=== PATIENT | male | born 1950 | race African-American/Black ===

== ENCOUNTER 2018-08-01 23:56 | Emergency (ER) | payer OTHER ==
[2018-08-02 00:57] VITALS: BP 147/84; PULSE 63; TEMP 99.1; BMI 21.5
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
--- NOTE | 2018-08-02 01:21 | PDOC ---
Attending Attestation - Resident Resident Name: Luis Gastelum - ED Attending Attestation I have performed the following: I have examined & evaluated the patient, The case was reviewed & discussed with the resident, I agree w/resident's findings & plan - HPI HPI: 08/02/18 01:18 67-year-old male with history of prostate CA status post [facility] last [facility] presents now for evaluation of acute on chronic back pain, stating he needs to "reset his insurance" through [facility]. No fall or recent injury, no bowel or bladder issues, no leg weakness or fevers or chills. He is mostly looking for referral to outpatient specialists. He had an MRI of his LS and lower spine about one or 2 years ago, does not recall the results. - Physicial Exam PE: 08/02/18 01:19 Afebrile, vital signs are normal Very well-appearing, ambulating freely throughout the emergency department No midline spine tenderness to palpation, 5 out of 5 strength in all joints of both lower extremities, neurovascularly intact distally - Medical Decision Making 08/02/18 01:20 67-year-old male with acute on chronic low back pain, only red flag his history of prostate CVA, otherwise no findings on physical exam. [facility], but is looking for referral to other specialists/second opinion. LS spine x-ray Does not require or request pain medication No indication for further emergent workup, will refer to outpatient clinic.
== END 2018-08-02 02:16 | disposition home or self-care (01) ==
LOC: JER 23:56
DX: M54.5 Low back pain (principal); G89.29 Other chronic pain; Z85.46 Personal history of malignant neoplasm of prostate
CPT/HCPCS: 72100-TC-FY; 99281-25

== ENCOUNTER 2018-10-28 06:14 | Emergency (ER) | payer OTHER ==
[2018-10-28 06:46] VITALS: TEMP 98; BMI 21.5
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
[2018-10-28 09:12] VITALS: BP 140/78; PULSE 18
== END 2018-10-28 09:00 | disposition home or self-care (01) ==
LOC: JER 06:14
DX: Z03.89 Encounter for observation for other suspected diseases and conditions ruled out (principal); M19.90 Unspecified osteoarthritis, unspecified site
CPT/HCPCS: 99281-25

== ENCOUNTER → 2018-11-07 | Emergency (ER) | payer OTHER ==
[~2018-11-07] MED LIST: MAG HYDROX/AL HYDROX/SIMETH 30 ML UNIT-DOSE CUP ONE; MAG HYDROX/AL HYDROX/SIMETH 30 ML UNIT-DOSE CUP PO ONE
[2018-11-07 02:52] VITALS: BP 160/83; PULSE 86; TEMP 98.7; BMI 21.5
--- NOTE | 2018-11-07 03:22 | PDOC ---
History of Present Illness - General Chief Complaint: Pain Stated Complaint: ABD PAIN History Source: Patient Exam Limitations: No Limitations - History of Present Illness Initial Comments: 11/07/18 05:02 Patient is a 67 year old male with a significant past medical history of homelessness, and prostate cancer, who presents to the ED with complaints of stomach pain that began x2 weeks ago. Patient reports experiencing intermittent stomach pain with associated symptoms of diarrhea. He reports coming into the ED for mylanta, stating it has worked for his upset stomach in the past. Patient reports taking pepto bismol for stomach pain with no relief. Denies chest pain, Sob. Denies nausea, vomiting. Denies contact with sick individuals, out of state travelling. Denies fevers, chills. Denies any other symptoms. Allergies: None Social history: No smoking. No alcohol. No illicit drugs. Surgical history: None PMD: None ROS shortened version: Constitutional: no fevers or chills. HEENT: no headache or dizziness. No congestion. No visual/hearing disturbances. CVS: no cp or syncope. Resp: no sob. No cough. Abdomen: +Abdominal pain. no nausea or vomiting. Genitourinary: no urinary sx, hematuria. MUSCULOSKELETAL: No joint pain and swelling. No neck or back pain. SKIN: no redness or skin changes, no discharge, no rash. No wounds. Hematologic: no easy bruising/bleeding. NEUROLOGIC: No headache, dizziness, LOC or altered mental status. No weakness, numbness or tingling. All other systems reviewed and negative, or as documented in HPI. Physical exam (general medical): for attending only patients. General: Well appearing, awake and alert, NAD. HEENT: NCAT, PERRL, EOMI, clear conjunctiva, anicteric, moist mucus membranes, clear oropharynx, no oral lesions.. Neck: neck supple, FROM Resp: CTAB, normal and even respirations, no respiratory distress CVS: RRR, no murmurs, 2+ peripheral pulses throughout, no peripheral edema Abdomen: soft, NTND, no peritoneal signs. no maldonado's sign. Back: nontender, normal inspection and ROM MSK: no edema, PEREIRA x4, ROM intact. No clubbing or cyanosis. normal bulk and tone. Extremities: no calf tenderness Neuro: alert, Skin: warm and well perfused, cap refill <2 sec, normal color Past History - Past Medical History Allergies/Adverse Reactions: Allergies Allergy/AdvReac Type Severity Reaction Status Date / Time No Known Allergies Allergy Verified 11/07/18 02:51 Home Medications: Ambulatory Orders NK [No Known Home Medication] 11/07/18 COPD: No - Surgical History Abdominal Surgery: No - Suicide/Smoking/Psychosocial Hx Smoking History: Never smoked Have you smoked in the past 12 months: No Information on smoking cessation initiated: No Hx Alcohol Use: No Drug/Substance Use Hx: No Substance Use Type: None *Physical Exam - Vital Signs Last Vital Signs Temp Pulse Resp BP Pulse Ox 98.7 F 86 18 160/83 98 11/07/18 02:47 11/07/18 02:47 11/07/18 02:47 11/07/18 02:47 11/07/18 02:47 Moderate Sedation - Procedure Monitoring Vital Signs: Procedure Monitoring Vital Signs Temperature 98.7 F 11/07/18 02:47 Pulse Rate 86 11/07/18 02:47 Respiratory Rate 18 11/07/18 02:47 Blood Pressure 160/83 11/07/18 02:47 O2 Sat by Pulse Oximetry (%) 98 11/07/18 02:47 ED Treatment Course - LABORATORY CBC & Chemistry Diagram: 11/07/18 04:19 11/07/18 04:19 Medical Decision Making - Medical Decision Making 11/07/18 03:42 I, Delilah Arias MD, attest that this document has been prepared under my direction and personally reviewed by me in its entirety. I further attest, that it accurately reflects all work, treatment, procedures and medical decision -making performed by me. See HPI for details Vital signs reviewed, wnl. Prior notes reviewed, including admissions, discharges and consultations. laboratory results and imaging reviewed, basic labs and lytes wnl, LFTs and lipase UA_clear ED course: given mylanta/maalox, no abdominal tenderness. well, ambulatory w/o difficulties. no n/v/d. not suspecting cardiac. more likely chronic sx, GERD vs gastritis, as 2 week/ chronic history pt eloped prior to lab results coming back. he did receive his mylanta here. abdomen is soft NTND when initially evaluated and doubt serious or emergent pathology given timeline of sx. 11/07/18 03:44 11/07/18 05:02 *DC/Admit/Observation/Transfer Diagnosis at time of Disposition: Encounter for medical screening examination, Abdominal pain - Discharge Dispostion Disposition: ELOPED - Referrals - Patient Instructions - Post Discharge Activity
[2018-11-07 04:36] LABS: URINE APPEARANCE CLEAR; URINE BILIRUBIN NEGATIVE (<2.0 mg/dL); URINE COLOR YELLOW; URINE GLUCOSE (UA) NEGATIVE (NEGATIVE); URINE KETONE NEGATIVE (NEGATIVE); URINE LEUK ESTERASE NEGATIVE (NEGATIVE); URINE NITRITE NEGATIVE (NEGATIVE); URINE PROTEIN NEGATIVE (NEGATIVE)
[2018-11-07 04:51] LABS: BASO % 0.6 % (0-2.0); EOS % 3.6 % (0-4.5); HEMOGLOBIN 12.6 GM/dL (11.7-16.9); LYMPH % 12.2 % (8-40); MCH 30.5 pg (25.7-33.7); MCHC 32.2 g/dl (32.0-35.9); MEAN CELL VOLUME 94.7 fl (80-96); MEAN PLT VOLUME 9.1 fl (7.5-11.1); MONO % 11.6 % (3.8-10.2); PLATELET COUNT 225 K/MM3 (134-434); RBC 4.12 M/mm3 (4.00-5.60); RDW 12.6 % (11.9-15.9); WHITE BLOOD COUNT 7.3 K/mm3 (4.0-10.0)
[2018-11-07 05:14] LABS: ALK PHOS 106 U/L (45-117); ANION GAP 8 MMOL/L (8-16); BILIRUBIN,TOTAL 0.5 mg/dL (0.2-1); BLOOD UREA NITROGEN 20 mg/dL (7-18); CALCIUM 9.1 mg/dL (8.5-10.1); CHLORIDE 104 mmol/L (98-107); CO2 30 mmol/L (21-32); CREATININE 1.3 mg/dL (0.55-1.3); GLUCOSE,RANDOM 93 mg/dL (74-106); LIPASE 211 U/L (73-393); POTASSIUM 4.2 mmol/L (3.5-5.1); SGOT/AST 42 U/L (15-37); SGPT/ALT 48 U/L (13-61); SODIUM 142 mmol/L (136-145); TOT PROT 7.9 g/dl (6.4-8.2)
== END | disposition left against medical advice (07) ==
LOC: JER 02:21
DX: R10.84 Generalized abdominal pain (principal); Z85.46 Personal history of malignant neoplasm of prostate
CPT/HCPCS: 36415; 80053; 81003; 83690; 85025; 99281-25